=== PATIENT | female | born 1955 | race Caucasian/White ===

== ENCOUNTER → 2020-02-10 12:23 | Outpatient (BNVA) | payer MEDICARE, BC, SELFPAY | PROVIDERS: Referring Provider Family Medicine; Visit Provider Nurse Practitioner Family | DX: I48.20 Chronic atrial fibrillation, unspecified (principal) | CPT/HCPCS: 85610 ==

== ENCOUNTER → 2021-04-08 11:54 | Outpatient (BNVA) | payer MEDICARE, BC, SELFPAY | PROVIDERS: PCP Nurse Practitioner Family; Visit Provider Nurse Practitioner Family | DX: R53.82 Chronic fatigue, unspecified (principal) | CPT/HCPCS: 84443 ==

== ENCOUNTER → 2021-07-01 13:13 | Outpatient (BNVA) | payer MEDICARE, BC, SELFPAY | PROVIDERS: PCP Nurse Practitioner Family; Visit Provider Family Medicine | DX: E03.9 Hypothyroidism, unspecified (principal) | CPT/HCPCS: 84439; 84443 ==

== ENCOUNTER → 2021-12-28 13:31 | Outpatient (BNVA) | payer MEDICARE, BC, SELFPAY | PROVIDERS: Visit Provider Nurse Practitioner | DX: E03.9 Hypothyroidism, unspecified (principal); D69.9 Hemorrhagic condition, unspecified | CPT/HCPCS: 84443; 85610 ==

== ENCOUNTER → 2024-01-17 15:52 | Outpatient (BNVA) | payer MEDICARE, SELFPAY | PROVIDERS: Visit Provider Nurse Practitioner Family | DX: Z79.899 Other long term (current) drug therapy (principal); N39.0 Urinary tract infection, site not specified | CPT/HCPCS: 81003; 87086 ==

== ENCOUNTER → 2024-03-07 13:33 | Outpatient (BNVA) | payer MEDICARE, SELFPAY | PROVIDERS: PCP Nurse Practitioner Family; Visit Provider Nurse Practitioner Family | DX: T14.8XXA Other injury of unspecified body region, initial encounter (principal); Z95.2 Presence of prosthetic heart valve; Z79.899 Other long term (current) drug therapy; X58.XXXA Exposure to other specified factors, initial encounter | CPT/HCPCS: 85610 ==

== ENCOUNTER → 2024-04-23 11:07 | Outpatient (BNVA) | payer MEDICARE, SELFPAY | PROVIDERS: PCP Nurse Practitioner Family; Visit Provider Nurse Practitioner Family | DX: I48.91 Unspecified atrial fibrillation (principal); I50.22 Chronic systolic (congestive) heart failure; I49.01 Ventricular fibrillation; Z95.2 Presence of prosthetic heart valve; I10 Essential (primary) hypertension; E03.9 Hypothyroidism, unspecified | CPT/HCPCS: 80048; 80053; 80061; 80162; 84443; 85025 ==

== ENCOUNTER → 2025-03-10 13:33 | Outpatient (BNVA) | payer MEDICARE, SELFPAY | PROVIDERS: PCP Nurse Practitioner Family; Visit Provider Nurse Practitioner Family | DX: E03.9 Hypothyroidism, unspecified (principal); Z95.2 Presence of prosthetic heart valve; Z86.79 Personal history of other diseases of the circulatory system; Z79.899 Other long term (current) drug therapy; Z95.5 Presence of coronary angioplasty implant and graft; T14.8XXA Other injury of unspecified body region, initial encounter; X58.XXXA Exposure to other specified factors, initial encounter | CPT/HCPCS: 80048; 80162; 83735; 83880; 84443; 85610 ==